=== PATIENT | female | born 1965 | race Caucasian/White ===

== ENCOUNTER 2018-10-16 11:18 | Emergency (ER) | payer BC ==
[~2018-10-16] VITALS: Ht 165.1 cm; Wt 115.0 kg
[~2018-10-16 11:18] MED LIST: PHENERGAN SUPP RE
[2018-10-16 11:45] LABS: HEMATOCRIT 42.2 % (37.0-47.0); HEMOGLOBIN 13.5 g/dl (12.0-16.0); IMMATURE GRANULOCYTES 0.4 % (0.0-5.0); MEAN CELL VOLUME 91.3 fL CALC (80.0-100.0); MEAN CORPUSCULAR HGB 29.2 pG CALC (26.0-32.0); NEUT# 4.78 thou/uL (2.00-7.15); RED BLOOD COUNT 4.62 mill/uL (4.20-5.60)
[2018-10-16 12:49] LABS: ALBUMIN 4.3 g/dL (3.2-5.0); ALKALINE PHOSPHATASE 94 u/l (38-126); AMYLASE 45 u/l (30-110); ANION GAP 12 (6-22 (CALC)); BILIRUBIN, TOTAL 0.3 mg/dL (0.0-1.4); BUN 22 mg/dL (7-17); BUN/CREATININE RATIO 26 (12-20 (CALC)); CARBON DIOXIDE 28 mmol/l (22-30); CHLORIDE 104 mmol/l (95-108); CREATININE 0.9 mg/dL (0.5-1.0); GFR > 60 ML/MIN (>=60 (CALC)); GFR FOR AFR.AMER. > 60 ML/MIN (>=60 (CALC)); LIPASE 110 u/l (23-300); POTASSIUM 4.5 mmol/l (3.5-5.1); SGOT/AST 22 u/l (14-36); SODIUM 140 mmol/l (137-146); TOTAL PROTEIN 7.6 g/dL (6.3-8.2)
[2018-10-16 14:20] VITALS: BP 108/64
== END 2018-10-16 14:20 | disposition short-term general hospital (02) | DRG 311 ==
LOC: ED 11:18
DX: I24.9 Acute ischemic heart disease, unspecified (principal); I10 Essential (primary) hypertension

== ENCOUNTER 2019-02-27 | Emergency (ER) | payer BC ==
[2019-02-27] MEDS ORDERED: LORAZEPAM0.5 MG PO (13:23)
[2019-02-27] MEDS ORDERED: ESTRACE0.5 MG PO (13:24)
[2019-02-27] MEDS ORDERED: REQUIP XL4 MG PO (13:24)
[2019-02-27] MEDS ORDERED: TRAMADOL HCL50 MG PO (13:25)
[2019-02-27] MEDS ORDERED: LISINOPRIL10 MG PO (13:25)
[2019-02-27] MEDS ORDERED: MELOXICAM15 MG PO (13:26)
[2019-02-27] MEDS ORDERED: ASPIRIN81 MG PO (13:26)
[2019-02-27] MEDS ORDERED: TESSALON PER100 MG PO (14:43)
[2019-02-27] MEDS ORDERED: VENTOLIN HFA IN (14:43)
[2019-02-27] MEDS ORDERED: ZITHROMAX500 MG PO (14:43)
== END 2019-02-27 14:55 | disposition home or self-care (01) | DRG 203 ==
DX: J20.9 Acute bronchitis, unspecified (principal); I10 Essential (primary) hypertension

== ENCOUNTER 2023-09-12 12:32 | Emergency (ER) | payer BC ==
[2023-09-12] VITALS (14 sets, daily range): BP systolic 100–125; BP diastolic 69–82
[~2023-09-12] VITALS: Ht 165.1 cm; Wt 84.0 kg
[~2023-09-12 12:32] MED LIST changes: +ASPIRIN81 MG PO; +ESTRACE0.5 MG PO; +LISINOPRIL10 MG PO; +LORAZEPAM0.5 MG PO; +MELOXICAM15 MG PO; +REQUIP XL4 MG PO; +TESSALON PER100 MG PO; +TRAMADOL HCL50 MG PO; +VENTOLIN HFA IN; +ZITHROMAX500 MG PO
[2023-09-12] MEDS ORDERED: ASPIRIN 81 MG/TAB PO ONE (12:40)
[2023-09-12] MEDS ORDERED: NITROGLYCERIN 0.4 MG/TAB SL ONE (12:50)
[2023-09-12 13:04] LABS: BASO% 0.5 % (0-3); EOS% 1.2 % (0-8); HEMOGLOBIN 13.4 g/dl (12.0-16.0); IMMATURE GRANULOCYTES 0.1 % (0.0-5.0); LYMPH% 39.3 % (15-41); MEAN CELL VOLUME 92.2 fL CALC (80.0-100.0); MEAN CORPUSCULAR HGB 30.9 pG CALC (26.0-32.0); MEAN CORPUSCULAR HGB CONC 33.5 g/dL CAL (32.0-36.0); MONO% 7.1 % (2-13); NEUT# 4.04 thou/uL (2.00-7.15); NEUT% 51.8 % (42-76); RED BLOOD COUNT 4.34 mill/uL (4.20-5.60); RED CELL DISTRI WIDTH 11.7 % (11.5-15.5)
[2023-09-12 13:19] LABS: ALKALINE PHOSPHATASE 73 u/l (38-126); ANION GAP 7 (6-22 (CALC)); BILIRUBIN, TOTAL 0.4 mg/dL (0.02-1.3); BUN 24 mg/dL (7-17); BUN/CREATININE RATIO 20 (12-20 (CALC)); CARBON DIOXIDE 28 mmol/l (22-30); CHLORIDE 107 mmol/l (95-108); CREATININE 1.2 mg/dL (0.5-1.0); ESTIMATED GFR 52 ML/MIN (>=90 (CALC)); POTASSIUM 4.1 mmol/l (3.5-5.1); SGOT/AST 35 u/l (14-36); SODIUM 137 mmol/l (137-146); TOTAL PROTEIN 6.9 g/dL (6.3-8.2)
== END 2023-09-12 16:04 | disposition home or self-care (01) | DRG 313 ==
LOC: ED 12:32
PROVIDERS: Family Medicine
DX: R07.9 Chest pain, unspecified (principal); I10 Essential (primary) hypertension